=== PATIENT | female | born 1950 | race African-American/Black ===

== ENCOUNTER 2017-07-23 16:23 | Emergency (ER) | payer MEDICARE, OTHER ==
[~2017-07-23] VITALS: Ht 154.9 cm; Wt 45.5 kg
[~2017-07-23 16:23] MED LIST: ADV250 IH; AMLO-512 PO; CLON2 PO; HYDR1TAB4 PO; LEVAHFA IH; METH10 PO; PRED20 PO
[2017-07-23] MEDS ORDERED: SULFAMETHOX/TRIMETH DS 800-160 MG/TABLET PO ONE (17:45)
[2017-07-23] MEDS ORDERED: IBUPROFEN 600 MG TABLET PO ONE (17:45)
[2017-07-23 18:00] VITALS: BP 115/81
== END 2017-07-23 18:05 | disposition home or self-care (01) ==
LOC: EMS 16:24
DX: L03.211 Cellulitis of face (principal); F41.9 Anxiety disorder, unspecified; I10 Essential (primary) hypertension; J45.909 Unspecified asthma, uncomplicated; F17.210 Nicotine dependence, cigarettes, uncomplicated; F11.10 Opioid abuse, uncomplicated; Z85.3 Personal history of malignant neoplasm of breast; Z98.890 Other specified postprocedural states
CPT/HCPCS: 99283